=== PATIENT | male | born 1960 | race Hispanic/Latino ===

== ENCOUNTER → 2020-07-29 | Outpatient (CLI) | payer BC | LOC: WCC 16:11 | PROVIDERS: ATTEND Internal Medicine Infectious Disease | DX: E11.628 Type 2 diabetes mellitus with other skin complications (principal); Y83.8 Other surgical procedures as the cause of abnormal reaction of the patient, or of later complication, without mention of misadventure at the time of the procedure; S31.000A Unspecified open wound of lower back and pelvis without penetration into retroperitoneum, initial encounter; L02.212 Cutaneous abscess of back [any part, except buttock and flank]; I10 Essential (primary) hypertension; G99.0 Autonomic neuropathy in diseases classified elsewhere ==